=== PATIENT | female | born 1955 | race Caucasian/White ===

== ENCOUNTER 2016-11-09 07:37 | Day surgery (SDC) | payer BC ==
[~2016-11-09 07:37] MED LIST: ACETAMINOPHEN 1,000 MG/100 ML BTL IV ONE; FAMOTIDINE 20MG TABLET PO ONE; MECLIZINE 25 MG TABLET PO ONE; VANCOMYCIN HCL 1,000 MG in 0.9 % SODIUM CHLORIDE 250ML 250 ML IVPB ONE; VANCOMYCIN HCL 500 MG in 0.9 % SODIUM CHLORIDE 100ML 100 ML IV ONE
--- NOTE | 2016-11-09 07:50 | History and Physical Report ---
DATE: 11/09/2016. CHIEF COMPLAINT: This patient presents with a history of an intractable lumbar radiculitis with a spinal cord stimulator implant placed on April 22, 2009. HISTORY OF PRESENT ILLNESS: Although through time this system appeared to work well, approximately one year ago the generator malfunctioned and did not work. However, the patient failed to contact the clinic for evaluation. Upon her arrival, it was felt that the generator was depleted and unsalvageable. She was given the options to replace or remove; she opted to remove. PAST MEDICAL HISTORY: Headaches, degenerative arthritis. PAST SURGICAL HISTORY: To be provided. MEDICATIONS ON ADMISSION: To be provided. ALLERGIES: To be provided. FAMILY/PSYCHOSOCIAL HISTORY: Social alcohol, caffeine. Hyperthyroidism, hypertension. PHYSICAL EXAMINATION: General: Height 5 feet, 6 inches. Weight 300 pounds. Vital Signs: Unavailable. HEENT: Within normal limits. Lungs: Clear. Heart: Regular rate and rhythm. Abdomen: Nontender. Musculoskeletal: Examination of the musculoskeletal system shows diffuse tenderness throughout the lumbar spine. The incisional sites are identified at L2-3 approximately mid to low lumbar. The generator is in the posterior gluteal margin. All of the incisions are intact. Sensory gramajo are intact. Neurologic: Cranial nerves are intact. IMPRESSION: 1. LUMBAR RADICULITIS, ICD-10 CODE M54.16 AND M54.17. 2. SPINAL CORD STIMULATOR INTERNAL GENERATOR NONFUNCTIONAL. PLAN: The patient is here on an outpatient basis for removal of a nonfunctioning system. The potential risks, side effects, and complications have all been carefully reviewed and discussed. The procedure will be considered outpatient. SUSHIL COLLINS D.O. Date & Time JOB NUMBER: [id number] cc: Marilyn Mo
[2016-11-09] MEDS ORDERED: DESFLURANE 240 ML BTL INH ONE (15:30)
[2016-11-09] MEDS ORDERED: LABETALOL HCL 5MG/ML, 20ML VIAL SIVP ONE (15:30)
[2016-11-09] MEDS ORDERED: PROPOFOL 10 MG/ML VIAL IV ONE ×2 (15:30→16:33)
[2016-11-09] MEDS ORDERED: KETOROLAC 30 MG/ML VIAL IVP ONE (15:30)
[2016-11-09] MEDS ORDERED: LIDOCAINE 2% MDV (20MG/ML) 20ML VIAL IV ONE ×2 (15:30→16:33)
[2016-11-09] MEDS ORDERED: SUGAMMADEX SODIUM 200 MG/2 ML VIAL IV ONE (15:30)
[2016-11-09] MEDS ORDERED: ONDANSETRON HCL IV 4 MG/2 ML VIAL IVP ONE (15:30)
[2016-11-09] MEDS ORDERED: HYDROMORPHONE HCL 2 MG/ML VIAL IV ONE (15:30)
[2016-11-09] MEDS ORDERED: ROCURONIUM BROMIDE 50MG/5ML VIAL IV ONE (15:30)
[2016-11-09] MEDS ORDERED: BUPIVACAINE 0.5% W/EPI MPF 30 ML VIAL IVP ONE (15:39)
[2016-11-09] MEDS ORDERED: LIDOCAINE 1% W/EPI 1:200,000 MPF 30ML SQ ONE (15:39)
--- NOTE | 2016-11-09 16:11 | Operative Note - [place] ---
DATE OF SURGERY: 11/09/16 PREOPERATIVE DIAGNOSES: 1. INTRACTABLE LUMBAR RADICULITIS, ICD-10 CODE = M54.16 AND M54.17. 2. SPINAL CORD STIMULATOR, TWO LEADS, INTERNAL GENERATOR, NONFUNCTIONAL. OPERATION: 1. INCISION, SUBCUTANEOUS DISSECTION, AND REMOVAL OF TWO IMPLANTED SPINAL CORD STIMULATORS. 2. INCISION, SUBCUTANEOUS DISSECTION, AND REMOVAL OF INTERNAL PULSE GENERATOR. SURGEON: SUSHIL COLLINS D.O. ANESTHESIA: LOCAL SEDATION. ANESTHESIA PROVIDER: RIGOBERTO FERRERA CRNA. INDICATION: This patient presents with intractable lumbar radiculitis. Spinal cord stimulator implanted in 2008 over the last year failed. She opted to have it removed. PROCEDURE: Intravenous line, vital sign monitoring, IV sedation, prepped and draped sterile technique. Patient position prone. Sterile prep. Sterile technique. Under imaging, the incision for the two implanted leads infiltrated with local, incision made, and subcutaneous dissection was conducted to the anchor and sutures. The anchor and sutures were removed intact. The two leads were then removed out of the epidural space intact. Electrodes; each lead accounted for. At the right posterior gluteal margin generator pouch, skin infiltrated, incision made, and subcutaneous dissection was conducted to the generator. The generator was then exteriorized along with its connections. Antibiotic irrigation and Bovie for hemostasis. The incisions were then closed Vicryl for fascia and running subcuticular Vicryl for skin. A Dermabond closure system to approximate the edges of the wound. She was transported to the Recovery Room stable showing no side-effects from the procedure or the sedation. When fully awake and alert, she was ready for discharge. DISCHARGE INSTRUCTIONS: 1. The sites will remain clean and dry. No showering or bathing in any way that would disrupt dressings although the Dermabond will allow showering in 24 hours. 2. Standard medications resumed including Levaquin, the antibiotic, 500 mg once a day for 14 days. 3. The office will contact the patient in 5-7 days for an appointment in the office to evaluate the sites. Until then, she should keep her activities low. Once evaluated, she will be cleared for activities and showering. All other instructions provided, numbers to contact with problems given, instructions on medications provided. cc: Dr. Donaldson JOB NUMBER: [id number] MTDD
[2016-11-09] MEDS ORDERED: FENTANYL PF 100MCG/2ML VIAL IV ONE (16:33)
[2016-11-09] MEDS ORDERED: ALFENTANIL HCL 500 MCG/1ML, 2ML AMP IV ONE (16:33)
[2016-11-09] MEDS ORDERED: *PACU ONLY* KETAMINE HCL 10 MG/ML (20ML) VIAL IV ONE (16:33)
[2016-11-09] MEDS ORDERED: MIDAZOLAM HCL 2MG/2ML VIAL IV ONE (16:33)
== END 2016-11-09 13:15 | disposition home or self-care (01) ==
LOC: SUR 07:37
PROVIDERS: ATTEND Pain Medicine Interventional Pain Medicine
DX: T85.192A Other mechanical complication of implanted electronic neurostimulator of spinal cord electrode (lead), initial encounter (principal); T85.193A Other mechanical complication of implanted electronic neurostimulator, generator, initial encounter; M54.16 Radiculopathy, lumbar region; M54.17 Radiculopathy, lumbosacral region; I25.2 Old myocardial infarction; E11.9 Type 2 diabetes mellitus without complications; Z79.84 Long term (current) use of oral hypoglycemic drugs; E78.00 Pure hypercholesterolemia, unspecified; G90.529 Complex regional pain syndrome I of unspecified lower limb
CPT/HCPCS: 63661; 63688; 00300; 36416; 82948; J1885; J2405; J3370; J3010; J1170; J3490; J7050